=== PATIENT | male | born 1985 | race Caucasian/White ===

== ENCOUNTER 2025-01-26 18:44 | Emergency (ER) | payer OTHER, SELFPAY ==
--- OUTSIDE RECORDS SUMMARY | 2024-12-15 10:00 | XMS_ITS | Encounter Summary ---
Author Organization [facility] Address [address] [place] [address] Care Team Providers Care Pad Tufter Name Role Phone Cassie Nation Primary Care Provider [phone] Rios Diaz PA-C Unavailable [phone] Reason for Visit * Reason Comments Consultation Encounter Details Date Type Department Care Team (Late st Contact Info) Description 12/15/2024 10:00 AM CDT Office Visit [facility] - [address] [place] [id number] Rios Diaz PA-C [address] [place] [address] [place] [id number] Migraine with aura and without status migrainosus, not intractable (Primary Dx); Cervicalgia Social History Tobacco Use Types Packs/Day Years Used Date Smoking Tobacco: Former Cigarettes Smokeless Tobacco: Former Tobacco Cessation:Counseling Given: No Comments:vipe Alcohol Use Standard Drinks/Week Comments Yes 0 (1 standard drink = 0.6 oz pur e alcohol) rarely Sex and Gender Information Value Date Recorded Sex Assigned at Not on file Legal Sex Male 9:17 AM CDT Gender Identity Not on file Sexual Orientation Not on file documented as of this encounter Last Filed Vital Signs Vital Sign Reading Time Taken Comments Blood Pressure - - Pulse - - Temperature - - Respiratory Rate 15 12/15/2024 10:55 AM CDT Oxygen Saturation - - Inhaled Oxygen Concentration - - Weight 64.4 kg (142 lb) 12/15/2024 10:55 AM CDT Height 165.1 cm (5' 5) 12/15/2024 10:55 AM CDT Body Mass Index 23.63 12/15/2024 10:55 AM CDT documented in this encounter Progress Notes * Rios Diaz PA-C - 12/15/2024 10:00 AM CDT 12/15/2024 Neurology Consult Note 10:13 AM ~~~~~~~~~~~~ Rios Diaz PA-C Neurology ~~~~~~~~~~~ REPORT OF CONSULTATION Patient Name: Scott Khan : 1985 Primary Care Physician: Cassie Nation PA Consulting Physician: Rios Diaz PA-C REASON FOR CONSULTATION I am asked to see this patient in consultation for evaluation of headaches and neck pain. He has a history of migraines in the past and was diagnosed with viral meningitis on 10/17/2024. HPI: Scott Khan is a 39-year-old pleasant male patient with a history of migraines and asthma, presents for follow-up after being diagnosed with viral meningitis approximately 2 months ago. He wasdiagnosed with viral meningitis on 10/17/2024. He reports ongoing headaches and neck pain since the meningitis. The headaches typically start at the base of the head and progress to a pressure sensation all over the head. He experiences these headaches a few times a week, with severity ranging from 2-4/10, occasionally reaching 6/10 when accompanied by nausea. Associated symptoms include: - Vision changes: difficulty focusing, haziness lasting minutes to hours - Brain fog and confusion - Dizziness during headache episodes - Ear pressure and popping sensation - Sleep disturbances: broken sleep, discomfort, and stiffness Scott also notes increased asthma symptoms, particularly at night, with chest tightness and shallowbreathing. 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 Current medications: - Tylenol (acetaminophen) as needed - Ibuprofen as needed - Cyclobenzaprine (Flexeril) for sleep - Inhaler for asthma - Pepcid (famotidine) for acid reflux He reports improvement since the acute phase of meningitis, but is not back to his baseline. He describes his recovery as two steps forward, one step back. He does admit to a history of migraines since his teenage years. His mother also has a history of migraines. He has never been placed on any medications for his migraines. PAST MEDICAL HISTORY Past Medical History: Diagnosis Date Headache Neck pain PAST SURGICAL HISTORY No past surgical history on file. ALLERGIES/SENSITIVITIES No Known Allergies CURRENT MEDS Current Outpatient Medications: acetaminophen (TYLENOL) 325 mg oral tablet, Take 3 tablets (975 mg) by mouth., Disp: , Rfl: albuterol HFA (PROVENTIL;VENTOLIN HFA) 90 mcg/actuation Inhl inhaler, INHALE 1 TO 2 PUFFS BY MOUTH EVERY 4 HOURS WHILE AWAKE, Disp: , Rfl: ammonium lactate 12% (LAC-HYDRIN) 12 % Top cream cream, Apply daily to affected area(s) as needed.,Disp: , Rfl: cyclobenzaprine (FLEXERIL) 10 mg oral tablet, , Disp: , Rfl: famotidine (PEPCID) 20 mg oral tablet, Take 1 tablet (20 mg) by mouth., Disp: , Rfl: gabapentin (NEURONTIN) 300 mg oral capsule, Take 1 cap qhs for 7 days, then take 2 caps qhs., Disp:60 capsule, Rfl: 3 ibuprofen (ADVIL) 800 mg oral tablet, Take 1 tablet (800 mg) by mouth., Disp: , Rfl: SUMAtriptan succinate (IMITREX) 100 mg oral tablet, Take 1 tablet (100 mg) by mouth as needed. May repeat after two hours. Maximum dose 200 mg/24 hours., Disp: 12 tablet, Rfl: 3 SOCIAL HISTORY Social History Socioeconomic History Marital status: Unknown Spouse name: Not on file Number of children: Not on file Years of education: Not on file Highest education level: Not on file Occupational History Not on file Tobacco Use Smoking status: Former Types: Cigarettes Smokeless tobacco: Former Tobacco comments: vipe Substance and Sexual Activity Alcohol use: Yes Comment: rarely Drug use: Never Sexual activity: Not on file Other Topics Concern Not on file Social History Narrative Not on file Social Drivers of Health Financial Resource Strain: Low Risk (10/18/2024) Received from [facility] Financial Resource Strain Within the past 12 months, have you or your family members you live with been unable to get utilities (heat, electricity) when it was really needed?: No Food Insecurity: Low Risk (10/18/2024) Received from [facility] Food Insecurity Within the past 12 months, did you worry that your food would run out before you got money to buy more?: No Within the past 12 months, did the food you bought just not last and you didn???t have money to getmore?: No Transportation Needs: Low Risk (10/18/2024) Received from [facility] Transportation Needs Within the past 12 months, has lack of transportation kept you from medical appointments, getting your medicines, non-medical meetings or appointments, work, or from getting things that you need?: No Physical Activity: Not on file Stress: Not on file Social Connections: Socially Integrated (10/16/2024) Received from [facility] Social Connections Do you often feel lonely or isolated from those around you?: 0 Intimate Partner Violence: Low Risk (10/18/2024) Received from [facility] Interpersonal Safety Do you feel physically and emotionally safe where you currently live?: Yes Within the past 12 months, have you been hit, slapped, kicked or otherwise physically hurt by someone?: No Within the past 12 months, have you been humiliated or emotionally abused in other ways by your partner or ex-partner?: No Housing Stability: Low Risk (10/18/2024) Received from [facility] Housing Stability Do you have housing? (Housing is defined as stable permanent housing and does not include staying outside in a car, in a tent, in an abandoned building, in an overnight halfway, or couch-surfing.): Yes Are you worried about losing your housing?: No FAMILY HISTORY Family History Problem Relation Name Age of Onset Migraines Mother Heart Disease Father REVIEW OF SYSTEMS: 10 point ROS was otherwise negative. Resp. rate 15, height 5' 5 (1.651 m), weight 64.4 kg (142 lb). EXAM: Patient was well groomed and appeared of appropriate age. HEENT: Pupils were equal and reactive to light and accommodation. Extraocular movements were intact. No mucosal congestion. Neck: The neck was supple. There were mild myofascial tender points and tightness in the paracervical, trapezius, and levator scapula areas. No carotid bruits. Chest: Air entry was present bilaterally. Chest was clear to auscultation. Heart: S1-S2, regular rate and rhythm. No murmurs. Neurological examination: Higher mental functions: The patient was awake alert and oriented x3. Speech and language functionswere normal. Cranial nerves examination: Pupils were equal and reactive to light and accommodation. Extraocular movements were intact. The optic disc was normal. There was no papilledema. There was no disconjugate gaze. There were no facial sensory deficits. There was no facial asymmetry. The shoulder shrug wasnormal. The tongue and uvula were in the midline. CN II- XII normal. Motor examination: The tone was normal. There is no pronator drift. The strength in the proximal and distal muscle groups in both upper and lower extremities was normal at 5/5. Reflexes were 2/5 bilaterally symmetrical in both upper and lower extremities. The toes were downgoing. Sensory examination: The light touch, pinprick, joint position, vibration and temperature sensations were normal. Coordination: Finger to nose and heel to rollins testing were normal. There was no dysmetria. No dysdiadochokinesia. Gait: The patient walked with a narrow-based gait. There was no gait ataxia. Romberg's test was negative. Tandem, heel and toe walking were normal. Imaging: CT head (reviewed) - 10/17/24 IMPRESSION: 1. No acute intracranial process. Assessment and Plan: Scott Khan is a 39-year-old pleasant male presenting today with a history of migraines in the past and a recent diagnosis of viral meningitis a couple months ago. He is continuing and noticed lingering symptoms with intermittent flareups of headaches and brain fog. Assessment: 1. Post-viral meningitis syndrome: Patient experiencing persistent headaches, neck pain, and neurological symptoms following viral meningitis diagnosis 2 months ago. 2. Possible posttraumatic migraine: History of migraines with current symptoms suggesting a transformation to a more chronic form following the viral meningitis. He may be dealing with classical migraines as he has been noticing some hazy vision issues that can last minutes to hours. 3. Asthma exacerbation: Reported increase in asthma symptoms, particularly nocturnal chest tightness and shallow breathing. Plan: 1. 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 Asthma management: - Continue current inhaler use - Monitor symptoms and use of rescue inhaler - Consider pulmonary function testing if symptoms persist or worsen 3. General recommendations: - Maintain regular sleep schedule - Ensure regular meals - Gradually reintroduce exercise routine as symptoms allow - Stay well-hydrated - Avoid alcohol and recreational drugs 4. Follow-up: - Schedule appointment in 4-6 weeks - Instruct patient to message via [employer] for any side effects or concerns before the follow-up appointment I thank Cassie Nation PA for the opportunity to participate in the patient's care. I spent 60 min. With the patient in activities before, during and after the visit. [facility] 2024: Documentation of current mediations reviewed every visit 2. Does patient use tobacco? No 3. Patient has had no falls in calendar year 4. Does patient have Dementia? No Rios Diaz PA-C Neurology documented in this encounter Plan of Treatment Not on file documented as of this encounter Visit Diagnoses Diagnosis Migraine with aura and without status migrainosus, not intractable- Primary Migraine with aura, without mention of intractable migraine without mention of status migrainosus Cervicalgia documented in this encounter Care Teams Pad Tufter Relationship Specialty [place] [address] [place] [address] PCP - General Family Medicine 11/02/24 Rios Diaz PA-C [address] [facility] [address] [place] [address] Neurology 11/03/24 documented as of this encounter
--- OUTSIDE RECORDS SUMMARY | 2025-01-26 18:47 | XMS_ITS | Clinical Summary ---
Author Organization [facility] Address [address] [facility] [place] [address] Care Team Providers Care [employer] Travel Counselor Name Role Phone No Ref-Primary, Physician Primary Care Provider Allergies No known active allergies Medications albuterol (PROAIR HFA/PROVENTIL HFA/VENTOLIN HFA) 108 (90 BASE) MCG/ACT Inhaler Inhale 1-2 puffs into the lungs every 4 hours as needed. Active ammonium lactate (AMLACTIN) 12 % external cream Apply topically daily as needed. 4 Active fluticasone (FLOVENT DISKUS) 100 MCG/ACT inhaler Inhale 1 puff into the lungs 2 times daily. 3 Active oxyCODONE (ROXICODONE) 5 MG tabletIndicatio ns:Viral meningitis Take 1 tablet (5 mg) by mouth every 4 hours as needed for severe pain. 15 tablet 5 Active acetaminophen (TYLENOL) 325 MG tabletIndicatio ns:Viral meningitis Take 3 tablets (975 mg) by mouth 3 times daily. X 4 days then as needed pain/fever thereafter. 5 Active ibuprofen (ADVIL/MOTRIN) 800 MG tabletIndicatio ns:Viral meningitis Take 1 tablet (800 mg) by mouth 3 times daily as needed for inflammatory pain. (Take with food/don't take on empty stomach) 20 tablet 5 Active ondansetron (ZOFRAN ODT) 4 MG ODT tabIndications: Viral meningitis Take 1 tablet (4 mg) by mouth every 6 hours as needed for nausea or vomiting. 20 tablet 5 Active famotidine (PEPCID) 20 MG tabletIndicatio ns:Viral meningitis Take 1 tablet (20 mg) by mouth 2 times daily as needed (GI upset). Active Active Problems Problem Noted Date Diagnosed Date Viral meningitis 10/20/2024 Viral syndrome 10/17/2024 Tonsillitis 10/17/2024 Intractable headache, unspec ified chronicity pattern, unspecified headache type 10/17/2024 Community acquired pneumonia of right upper lobe of lung 10/17/2024 Family History Medical History Relation Comments Depression Father Depression Mother Relation Status Comments Father Mother Social History Tobacco Use Types Packs/Day Years Used Date Smoking Tobacco: Former Cigarettes Q uit: 05/11/2010 Smokeless Tobacco: Never Tobacco Cessation:Counseling Given: Yes Alcohol Use Standard Drinks/Week Comments No 0 (1 standard drink = 0.6 oz pur e alcohol) seldom PHQ-2 Answer Date Recorded PHQ-2 Score 0 04/20/2018 Adolescent Education Answer Date Record ed Getting School Help Needed Not on file 01/01 Food Insecurity Answer Date Recorded Within the past 12 months, d id you worry that your food would run out before you got money to buy more? No 10/18/2024 Within the past 12 months, d id the food you bought just not last and you didn t have money to get more? No 10/18/2024 Housing Stability Answer Date Recorded Do you have housing? (Housin g is defined as stable permanent housing and does not include staying outside in a car, in a tent, in an abandoned building, in an overnight group home, or couch-surfing.) Yes 10/18/2024 Are you worried about losing your housing? No 10/18/2024 Financial Resource Strain Answer Date R ecorded Within the past 12 months, h ave you or your family members you live with been unable to get utilities (heat, electricity) when it was really needed? No 10/18/2024 Transportation Needs Answer Date Record ed Within the past 12 months, h as lack of transportation kept you from medical appointments, getting your medicines, non-medical meetings or appointments, work, or from getting things that you need? No 10/18/2024 Interpersonal Safety Answer Date Record ed Do you feel physically and e motionally safe where you currently live? Yes 10/18/2024 Within the past 12 months, h ave you been hit, slapped, kicked or otherwise physically hurt by someone? No 10/18/2024 Within the past 12 months, h ave you been humiliated or emotionally abused in other ways by your partner or ex-partner? 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 Gender Identity Not on file Sexual Orientation Not on file Last Filed Vital Signs Vital Sign Reading Time Taken Comments Blood Pressure 119/74 10/23/2024 12:38 PM CDT Pulse 72 10/23/2024 12:38 PM CDT Temperature 36.4 C (97.6 F) 10/23/2024 12:38 PM CDT Respiratory Rate 19 10/23/2024 12:38 PM CDT Oxygen Saturation 97% 10/23/2024 12:38 PM CDT Inhaled Oxygen Concentration - - Weight 65.1 kg (143 lb 9.6 oz) 10/18/2024 1:16 A M CDT Height 165.1 cm (5' 5) 10/18/2024 1:16 AM CDT Body Mass Index 23.9 10/18/2024 1:16 AM CDT Plan of Treatment Health Maintenance Due Date Last Done Comments ADVANCE CARE PLANNING 1985 ANNUAL REVIEW OF HM ORDERS 1985 HEPATITIS B VACCINE (2 of 3 - 19+ 3-dose series) 11/07/2019 10/10/2019 PHQ-2 (once per calendar year) 2024 06/07/2018, 12/21/2016 YEARLY PREVENTIVE VISIT 07/01/2024 07/02/2023, 06/29 COVID-19 VACCINE ( - 2024- season) 2024 02/21/2021, 01/06/2021 INFLUENZA VACCINE (#1) 2024 03/19/2021, 2004 DIABETES SCREENING 10/23/2027 10/22/2024, 0 10/21/2024, 10/17/2024, Additional history exists DTAP/TDAP/TD VACCINE (3 - Td or Tdap) 06/29/2032 06/29/2022, 04/21/2011 ZOSTER VACCINE (1 of 2) 2036 HEPATITIS C SCREENING Completed 06/29/2022 PNEUMOCOCCAL VACCINE: PEDIATRICS (0 to 5 YEARS) AND AT-RISK PATIENTS (6 to 49 YEARS) Aged Out 06/29/2022 No longer eligible based on patient's age to complete this topic HIV SCREENING Completed 10/17/2024, 06/29/2022 HPV VACCINE (No Doses Required) Completed MENINGITIS VACCINE Aged Out No longer eligible based on patient's age to complete this topic Procedures Procedure Name Priority Date/Time Associated Diagnosis Comments BASIC METABOLIC PANEL Add-On 10/22/2024 6:35 AM CDT HIV ANTIGEN ANTIBODY COMBO Add-On 10/17/2024 2:07 PM CDT from Last 3 Months or Most Recently Relevant to Health Maintenance Results * Basic metabolic panel (10/22/2024 6:35 AM CDT) Sodium 137 135 - 145 mmol/L 10/22/2024 2:17 PM CDT [facility] Potassium 4.0 3.4 - 5.3 mmol/L 10/22/2024 2:17 PM CDT [facility] Chloride 100 98 - 107 mmol/L 10/22/2024 2:17 PM CDT [facility] Carbon Dioxide (CO2) 23 22 - 29 mmol/L 10/22/2024 2:17 PM CDT [facility] Anion Gap 14 7 - 15 mmol/L 10/22/2024 2:17 PM CDT [facility] Urea Nitrogen 10.5 6.0 - 20.0 mg/dL 10/22/2024 2:17 PM CDT [facility] Creatinine 0.91 0.67 - 1.17 mg/dL 10/22/2024 2:17 PM CDT [facility] GFR Estimate >90 >60 mL/min/1.7 3m2 10/22/2024 2:17 PM CDT [facility] Comment:eGFR calculated usin 2020 CKD-EPI equation. Calcium 9.3 8.8 - 10.4 mg/dL 10/22/2024 2:17 PM CDT [facility] Glucose 93 70 - 99 mg/dL 10/22/2024 2:17 PM CDT LABORATORY Blood STRUCTURE OF RIGHT UPPER LIMB / Unknown Venipuncture / Unknown 10/22/2024 6:35 AM CDT 10/22/2024 6:43 AM CDT us Chris Regan DO LAB - BLOOD ORDERABLES Final R esult LABORATORY [facility] [address] Lab (1st floor, no room number) [place] [address], [facility] * HIV Antigen Antibody Combo Cross (10/17/2024 2:07 PM CDT) [facility] HIV Antigen Antibody Combo Nonreactive Nonreactive 10/18/2024 3:04 AM CDT [facility] Comment:Negative HIV-1 p24 a ntigen and HIV-1/2 antibody screening test results usually indicate the absence of HIV-1 and HIV-2 infection. However, such negative results do not rule-out acute HIV infection. If acute HIV-1 or HIV-2 infection is suspected, detection of HIV-1 or HIV-2 RNA is recommended. This result is obtained using the [employer] HIV Duo method on the tiffany e801 immunoassay analyzer. Blood BLOOD SPECIMEN / Unknown Venipuncture / Unknown 10/17/2024 2:07 PM CDT 10/17/2024 2:29 PM CDT us Shira Salgado MD LAB - BLOOD ORDERABLES Final Res ult [facility] [facility] [facility] [place] [facility] [address] [facility], [address] [place] [address], [facility] from Last 3 Months or Most Recently Relevant to Health Maintenance Insurance [facility] [employer] Advance Directives For more information, please contact: [phone] * Full Code (Latest Code Status on File) Date Activated Date Inactivated Comments 10/18/2024 12:30 AM 10/23/2024 6:58 PM All basic an d advanced life-sustaining interventions are performed as appropriate Question Answer Comments Code status determined by: Discussion with patie nt/ legal decision maker Care Teams [employer] Travel Counselor Relationship Specialty Start Date End Date No Ref-Primary, Physician PCP - General 09/15/18
--- OUTSIDE RECORDS SUMMARY | 2025-01-26 18:47 | XMS_ITS | Clinical Summary ---
Author Organization [facility] Address [facility] [place] [address] Care Team Providers Care Spray Foam Installer Name Role Phone Peng Champagne MD Primary Care Provider Allergies No known active allergies Medications fluticasone propionate (Flovent Diskus) 100 mcg/actuation inhalerIndications: Mild persistent asthma without complication (HC) Inhale 1 Puff by mouth two times daily. 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 140 g 4 08/18/2023 4:10 PM CDT 4 Active ondansetron (ZOFRAN ODT) 4 mg disintegrating tabletIndications:H eadache syndrome,Nausea Place 1 Tablet (4 mg) on the tongue every 6 hours if needed for Nausea/Vomit ing. 30 Tablet 5 Active omeprazole (PRILOSEC) 20 mg Delayed-Release capsuleIndications: Nausea,Abdominal pain, epigastric Take 1 Capsule (20 mg) by mouth once daily before a meal. Take 30 minutes prior to a meal 30 Capsule 5 Active cyclobenzaprine (FLEXERIL) 10 mg tabletIndications:V iral meningitis (HC) Take 1 Tablet (10 mg) by mouth 3 times daily if needed for Muscle Spasm. 30 Tablet 5 Active albuterol HFA (PRO-AIR; VENTOLIN; PROVENTIL) 90 mcg/actuation inhalerIndications: Mild persistent asthma without complication (HC) Inhale 1-2 Puffs by mouth every 4 hours while awake. 8.5 g 3 5 Active Active Problems Problem Noted Date Diagnosed Date Enterovirus infection 11/10/2024 Viral meningitis 10/20/2024 Regular astigmatism, bilateral 08/06/2022 Resolved Problems Problem Noted Date Diagnosed Date Resolved Date Asthma 12/24/2015 10/31/2024 Laceration of hand 12/12/2010 Encounters Date Type Department Care Team Description 11/21/2024 8:45 AM CDT Office Visit [address] [address] Cassie Nation [facility] F/U (Patient needs ok to go back to work, on 10/17/24 patient was diagnosed with Viral meningitis, still some lower back pain and shedding fingernails ) 11/20/2024 Travel 11/14/2024 Travel 11/14/2024 Online Questionnaire [facility] E-Visits [address] [place] [address] Carter Villanueva Jr., AIRPLANE FIRST OFFICER, DNP 11/09/2024 3:00 PM CDT Office Visit [address] [address] Jere Sanford PA Follow Up (Meningitis, feeling about same today) 11/09/2024 Travel 11/04/2024 Travel 10/31/2024 2:10 PM CDT Office Visit [address] [address] Cassie Nation PA Follow Up (Patient presents for ER follow up) 10/30/2024 Travel from Last 3 Months Immunizations Immunization Administration Dates Next Due COVID-19 vaccine (Moderna 100mcg/0.5mL) PF, MDV 01/06/2021 Hepatitis B (Adult) 10/10/2019 Influenza, IIV3 (Age >=3 years) 02/04/2005 Influenza, IIV4 03/19/2021 Pneumococcal Conj 20-valent (Prevnar 20) 023 Tdap 06/29/2022,04/21/2011 Family History Medical History Relation Name Comments Heart attack Father Lung cancer Father Lymphoma Maternal Aunt Non-Hodgkins Esophageal cancer Maternal Grandfather Cancer-ovarian Mother Stomach cancer Mother Relation Name Status Comments Father Maternal Aunt Maternal Grandfather Mother Social History Tobacco Use Types Packs/Day Years Used Date Smoking Tobacco: Former Cigarettes Q uit: 2011 Passive Smoke Exposure: Past Smokeless Tobacco: Never Tobacco Cessation:Counseling Given: Yes Alcohol Use Standard Drinks/Week Comments Yes 0 (1 standard drink = 0.6 oz pure alcohol) Drinks alcohol very infrequently PHQ-2 Answer Date Recorded PHQ-2 TOTAL SCORE 0 11/21/2024 Social Connections Answer Date Recorded Do you often feel lonely or isolated from those around you? 0 10/16/2024 Financial Resource Strain Answer Date R ecorded Difficulty of Paying Living Expenses 3 09/01/2024 Difficulty of Paying Living Expenses Not on file 09/01/2024 Food Insecurity Answer Date Recorded Do you worry your food will run out before you are able to buy more? 1 10/16/2024 Transportation Needs Answer Date Record ed Does lack of transportation keep you from medica l appointments? 1 10/16/2024 Does lack of transportation keep you from work, meetings or getting things that you need? 1 10/16/2024 Housing Stability Answer Date Recorded What is your housing situation today? 1 10/16/2024 Interpersonal Safety Answer Date Record ed Are you being hit, kicked, p ushed or yelled at (see row info)? No 06/05/2024 Interpersonal Safety Abuse 12 - 18 Not on file 06/05/2024 Interpersonal Safety Ambulatory Vulnerability No t on file 06/05/2024 Utilities Answer Date Recorded Do you have trouble paying f or utilities (for example, heat, electricity, water, phone)? 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 Gender Identity Not on file Sexual Orientation Straight 08/06/2022 9: 56 AM CDT Obstetrics History Last Filed Vital Signs Vital Sign Reading Time Taken Comments Blood Pressure 112/72 11/21/2024 8:52 AM CDT Pulse 81 11/21/2024 8:52 AM CDT Temperature 36.7 C (98.1 F) 11/21/2024 8:52 AM CDT Respiratory Rate 16 10/16/2024 2:20 PM CDT Oxygen Saturation 97% 11/21/2024 8:52 AM CDT Inhaled Oxygen Concentration - - Weight 64.8 kg (142 lb 14.4 oz) 11/21/2024 8:52 AM CDT Height 165.1 cm (5' 5) 11/21/2024 8:52 AM CDT Body Mass Index 23.78 11/21/2024 8:52 AM CDT Plan of Treatment Health Maintenance Due Date Last Done Comments HPV series for age 9-45 (1 - 3-dose SCDM series) 2013 Hepatitis B series for 19+ (2 of 3 - 19+ 3-dose series) 11/07/2019 10/10/2019 COVID-19 vaccine series ( - 2024- season) 2024 02/21/2021, 01/06/2021 Influenza Vaccine (#1) 2024 03/19/2021, 2004 BMI (ht and wt on same day) for age 18+ 11/21/2025 11/21/2024, 10/31/2024, 11/15/2023, Additional history exists Depression screening for age 12+ 11/21/2025 11/21/2024, 07/02/2023, 06/29/2022, Additional history exists Lipids for age 35-44 07/01/2028 07/02/2023, 07/02/2023, 06/29/2022 Tetanus booster 06/29/2032 06/29/2022, 04/21/2011 RSV vaccine for adults or (1 - 1-dose 75+ series) 2061 HIV for age 15-65 Completed 06/29/2022 Hepatitis C screening for age 18-79 Completed 06/29/2022 Pneumococcal series for age 6-49 Aged Out 06/29/2022 No longer eligible based on patient's age to complete this topic Procedures Procedure Name Priority Date/Time Associated Diagnosis Comments CBC WITH AUTO DIFFERENTIAL Routine 11/09/2024 3:44 PM CDT Viral meningitis (HC) - 11/03 Abnormal CBC CBC WITH AUTO DIFFERENTIAL Routine 11/09/2024 3:44 PM CDT Viral meningitis (HC) - 11/03 Abnormal CBC LIPID PANEL W REFLEX MEASURED LDL Routine 07/02/2023 1:18 PM CDT Annual physical exam LC HIV-1/O/2, 4TH GENERATION Routine 06/29/2022 1:21 PM CDT Screening for HIV (human immunodeficiency virus) LC HCV ANTIBODY RFX TO QUANT PCR Routine 06/29/2022 1:21 PM CDT Need for hepatitis C screening test from Last 3 Months or Most Recently Relevant to Health Maintenance Results * (ABNORMAL) CBC WITH AUTO DIFFERENTIAL (11/09/2024 3:44 PM CDT) Pathologist [facility] WHITE BLOOD CELL COUNT 7.3 3.8 - 10.8 Thousand/ uL 11/10/2024 3:53 AM CDT [facility] RED BLOOD CELL COUNT 4.35 4.20 - 5.80 Million/u L 11/10/2024 3:53 AM CDT [facility] HEMOGLOBIN 14.5 13.2 - 17.1 g/dL 11/10/2024 3:53 AM CDT [facility] HEMATOCRIT 41.2 38.5 - 50.0 % 11/10/2024 3:53 AM CDT [facility] MCV 94.7 80.0 - 100.0 fL 11/10/2024 3:53 AM CDT [facility] MCH 33.3(H) 27.0 - 33.0 pg 11/10/2024 3:53 AM CDT [facility] MCHC 35.2 32.0 - 36.0 g/dL 11/10/2024 3:53 AM CDT [facility] Comment: For adults, a slight decrease in the calculated MCHC value (in the range of 30 to 32 g/dL) is most likely not clinically significant; however, it should be interpreted with caution in correlation with other red cell parameters and the patient's clinical condition. RDW 13.2 11.0 - 15.0 % 11/10/2024 3:53 AM CDT [facility] PLATELET COUNT 381 140 - 400 Thousand/ uL 11/10/2024 3:53 AM CDT [facility] MPV 10.7 7.5 - 12.5 fL 11/10/2024 3:53 AM CDT [facility] NEUTROPHILS 58.3 % 11/10/2024 3:53 AM CDT [facility] LYMPHOCYTES 31.7 % 11/10/2024 3:53 AM CDT [facility] MONOCYTES 7.9 % 11/10/2024 3:53 AM CDT [facility] EOSINOPHILS 1.4 % 11/10/2024 3:53 AM CDT [facility] BASOPHILS 0.7 % 11/10/2024 3:53 AM CDT [facility] ABSOLUTE NEUTROPHILS 4256 1500 - 7800 cells/uL 11/10/2024 3:53 AM CDT [facility] ABSOLUTE LYMPHOCYTES 2314 850 - 3900 cells/uL 11/10/2024 3:53 AM CDT [facility] ABSOLUTE MONOCYTES 577 200 - 950 cells/uL 11/10/2024 3:53 AM CDT [facility] ABSOLUTE EOSINOPHILS 102 15 - 500 cells/uL 11/10/2024 3:53 AM CDT [facility] ABSOLUTE BASOPHILS 51 0 - 200 cells/uL 11/10/2024 3:53 AM CDT [facility] Blood BLOOD SPECIMEN / Unknown [facility] / Unknown 11/09/2024 3:44 PM CDT 11/09/2024 3:44 PM CDT us Jere MARIANO HEMATOLOGY Final Resul t [facility] [place] [address], * (ABNORMAL) LIPID PANEL W REFLEX MEASURED LDL (07/02/2023 1:18 PM CDT) CHOLESTEROL,TOTAL 212(H) 100 - 199 mg/dL 07/02/2023 10:26 PM CDT [facility] Comment: Cholesterol, Total Reference Ranges Desirable <200 mg/dL Borderline 200-239 mg/dL High >=240 mg/dL TRIGLYCERIDES 426(H) <150 mg/dL 07/02/2023 10:26 PM CDT [facility] HDL CHOLESTEROL 40(L) >40 mg/dL 10:26 PM CDT [facility] NON-HDL CHOLESTEROL 172(H) <145 mg/dl 07/02/2023 10:26 PM CDT [facility] CHOL/HDL RATIO 5.30(H) <4.50 07/02/2023 10:26 PM CDT [facility] LDL CHOLESTEROL 10:26 PM CDT [facility] Comment:Invalid LDL when Tri g >400. VLDL CHOLESTEROL COMMENT 07/02/2023 10:26 PM CDT [facility] Comment:Unable to calculate VLDL. PROVIDER ORDERED STATUS RANDOM 07/02/2023 10:26 PM CDT [facility] Blood BLOOD SPECIMEN / Unknown Venipuncture / Unknown 07/02/2023 1:18 PM CDT 07/02/2023 1:19 PM CDT us Peng Champagne MD CHEMISTRY Final R esult [facility] [address] [place] [address], * LC HCV ANTIBODY RFX TO QUANT PCR (06/29/2022 1:21 PM CDT) [facility] HCV Ab Non Reactive Non Reactive 07/02/2022 3:10 PM CDT [facility] Blood BLOOD SPECIMEN / Unknown Venipuncture / Unknown 06/29/2022 1:21 PM CDT 06/29/2022 1:22 PM CDT Narrative [facility] - 07/02/2022 3:10 PM CDT Performed at: [address] [place] [id number] Ink Jet Operator: Bobo Salvador MD, Phone: [phone] us Yanelis Parson DO LABORATORY Final Result [facility] [address] [place] [address], * LC HIV-1/O/2, 4TH GENERATION (06/29/2022 1:21 PM CDT) HIV Scr 4th Gen Non Reactive Non Reactive 07/01/2022 10:07 PM CDT [facility] ([facility]) Comment: HIV Negative HIV-1/HIV-2 antibodies and HIV-1 p24 antigen were NOT detected. There is no laboratory evidence of HIV infection. Blood BLOOD SPECIMEN / Unknown Venipuncture / Unknown 06/29/2022 1:21 PM CDT 06/29/2022 1:22 PM CDT Narrative [facility] - 07/01/2022 10:07 PM CDT Performed at: [address] [place] [id number] Ink Jet Operator: Bobo Salvador MD, Phone: [phone] us Yanelis Parson DO LABORATORY Final Result [facility] [address] [place] [address] from Last 3 Months or Most Recently Relevant to Health Maintenance Insurance [facility] Care Teams Spray Foam Installer Relationship Specialty [place] [address] [facility] [place] [address] PCP - General Family Practice 07/02/23
--- OUTSIDE RECORDS SUMMARY | 2025-01-26 18:47 | XMS_ITS | Clinical Summary ---
Author Organization [facility] Address [address] [place] [address] Care Team Providers Care Mercury Purifier Name Role Phone Cassie Nation Primary Care Provider [phone] Rios Diaz PA-C Unavailable [phone] Allergies No known active allergies Medications acetaminophen (TYLENOL) 325 mg oral tablet Take 3 tablets (975 mg) by mouth. 5 Active albuterol HFA (PROVENTIL;ENRIQUE TAVARES HFA) 90 mcg/actuation Inhl inhaler INHALE 1 TO 2 PUFFS BY MOUTH EVERY 4 HOURS WHILE AWAKE Active ammonium lactate 12% (LAC-HYDRIN) 12 % Top cream cream Apply daily to affected area(s) as needed. 4 Active cyclobenzaprine (FLEXERIL) 10 mg oral tablet 5 Active famotidine (PEPCID) 20 mg oral tablet Take 1 tablet (20 mg) by mouth. 5 Active ibuprofen (ADVIL) 800 mg oral tablet Take 1 tablet (800 mg) by mouth. 5 Active gabapentin (NEURONTIN) 300 mg oral capsuleIndicatio ns:Migraine with aura and without status migrainosus, not intractable,Cerv icalgia Take 1 cap qhs for 7 days, then take 2 caps qhs. 60 capsule 3 5 Active SUMAtriptan succinate (IMITREX) 100 mg oral tabletIndication s:Migraine with aura and without status migrainosus, not intractable Take 1 tablet (100 mg) by mouth as needed. May repeat after two hours. Maximum dose 200 mg/24 hours. 12 tablet 3 Active Active Problems Problem Noted Date Diagnosed Date Viral meningitis 10/20/2024 Community acquired pneumonia of right upper lobe of lung 10/17/2024 Encounters Date Type Department Care Team Description 12/15/2024 10:00 AM CDT Office Visit [facility] - [address] [place] [address] Rios Diaz PA-C Migraine with aura and without status migrainosus, not intractable (Primary Dx); Cervicalgia from Last 3 Months Immunizations Immunization Administration Dates Next Due Hep B Adult 10/10/2019 Influenza split virus (Fluzone Quadrivalent PF) 03/19/2021 Influenza split virus trivalent 02/04/2005 Pneumococcal PCV20 06/29/2022 SPIKEVAX (Moderna) 12+ Yrs M onovalent COVID Vaccine (bad credit collector) 01/06/2021 Tdap 06/29/2022,04/21/2011 Family History Medical History Relation Comments Heart Disease Father Migraines Mother Relation Status Comments Father Mother Social [...] Mass Index 23.63 12/15/2024 10:55 AM CDT Plan of Treatment Health Maintenance Due Date Last Done Comments Hepatitis C Screening 1986 Lipid Screening 1986 Anxiety Screening (PENELOPE-2) 11/12/1987 Depression Assessment (PHQ-2) 11/12/1987 HPV Vaccine (1 - 3-dose SCDM series) 2013 COVID-19 Vaccine (2 - 2024-2 6 season) 2024 01/06/2021 Influenza Vaccine (#1) 2024 , 02/04/2005 Adult Tetanus Booster 06/29/2032 06/29/2022 , 04/21/2011 RSV Vaccines (1 - 1-dose 75+ series) 2061 Pneumococcal Vaccine Aged Out 06/29/2022 No long er eligible based on patient's age to complete this topic Meningococcal B Vaccine Aged Out No l onger eligible based on patient's age to complete this topic Insurance [facility] Care Teams Mercury Purifier Relationship Specialty [place] [address] [place] [address] PCP - General Family Medicine 11/02/24 Rios Diaz PA-C [address] [facility] [address] [place] [address] Neurology 11/03/24
--- OUTSIDE RECORDS SUMMARY | 2025-01-26 18:47 | XMS_ITS | Encounter Summary ---
Author Organization [place] Address [address] [place] [address] Care Team Providers Care Senior Reactor Operator Name Role Phone [facility] Primary Care Provider + Kaylee Flores PA-C Unavailable Kaylee Flores PA-C Unavailable No Ref-Primary, Physician Primary Care Provider David Brumfield MD Unavailable Encounter Details Date Type Department Care Team (Late st Contact Info) Description 06/06/2018 [facility] Treatment Plan [facility] [place] [address], [address] [place] [address] Rachael Martínez Psy.D, LP Social History Tobacco Use Types Packs/Day Years Used Date Smoking Tobacco: Former Cigarettes Q uit: 05/11/2010 Smokeless Tobacco: Never Alcohol Use Standard Drinks/Week Comments No 0 (1 standard drink = 0.6 oz pur e alcohol) seldom PHQ-2 Answer Date Recorded PHQ-2 Score 0 04/20/2018 Sex and Gender Information Value Date Recorded Sex Assigned at Not on file Legal Sex Male 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 Gender Identity Not on file Sexual Orientation Not on file documented as of this encounter Plan of Treatment Not on file documented as of this encounter Visit Diagnoses Not on filedocumented in this encounter Additional Health Concerns Infection Onset Date Last Indicated Resolved Time COVID-19 03/10/2021 03/10/2021 03/31/2021 11:4 1 PM BUCKLE STRAP DRUM OPERATOR Rule Out COVID-19 10/17/2024 10/17/2024 10/17/2024 3:27 PM CDT documented as of this encounter Care Teams Senior Reactor Operator Relationship Specialty Start Date End Date [facility] PCP - General Family Practice 05/11/14 09/14/18 Kaylee Flores PA-C [address] [place] [address] PCP - Assigned PCP 11/26/16 06/14/18 No Ref-Primary, Physician PCP - General 09/15/18 Kaylee Flores PA-C [address] [place] [address] Assigned PCP 11/26/16 12/23/19 [place] [address] [place] [place] [address] Assigned Musculoskeletal Provider 02/02/20 04/27/20 documented as of this encounter
[2025-01-26 18:53] VITALS: BP 127/77; PULSE 128; RESP 18; TEMP 39.2; O2SAT 97; BMI 22.0
[2025-01-26 19:10] VITALS: RESP 16; TEMP 39.2
--- NOTE | 2025-01-26 19:20 | CRLHL7_ITS ---
For Patients: As a result of the Cures Act, medical imaging exams and procedure reports are released immediately into your electronic medical record. You may view this report before your referring provider. If you have questions, please contact your health care provider. INDICATION: Fever. TECHNIQUE: Chest 2 views. COMPARISON: None. FINDINGS: No pneumothorax or pleural effusion. Subtle asymmetric ill-defined left infrahilar opacity. Lungs are otherwise clear. Cardiac and mediastinal contours are within normal limits. Upper abdomen and osseous structures as imaged show no acute abnormality. IMPRESSION: Subtle left infrahilar opacity, concerning for pneumonia. Dictated by Ace Cottrell MD @ 01/26/2025 8:04:37 PM (Electronically Signed)
[2025-01-26 19:50] LABS: PCR FLU A Negative PCR FLU A (Negative); PCR FLU B Negative PCR FLU B (Negative); PCR RSV Negative PCR RSV (Negative); SARS PCR* Negative SARS-CoV-2 (Negative)
[2025-01-26 20:03] LABS: Lactate* 1.1 mmol/L (0.5-1.9)
[2025-01-26 20:05] LABS: Appearance Urine Clear (Clear)
[2025-01-26 20:06] LABS: Hematocrit* 41.0 % (37.0-53.0); Hemoglobin* 14.8 gm/dL (13.5-17.5); Immature Granulocytes Pct Auto 0.2 %; Mean Corpuscular HGB Conc 36 gm/dL (32-36); Mean Corpuscular Hemoglobin 33 pg (26-34); Mean Corpuscular Volume 92 fL (80-100); RDW Coefficient of Variation % 12.0 % (11.5-15.5); Red Blood Count* 4.48 m/uL (4.30-5.90); White Blood Count* 11.42 K/uL (4.50-11.00)
[2025-01-26 20:10] LABS: Immature Granulocytes Abs Auto 0.00 K/uL (0.00-0.30); Lymphocytes Absolute Auto 0.80 K/uL (0.90-2.90); Slide Review Reflex No
[2025-01-26 20:19] LABS: Chloride* 101 mmol/L (96-114)
[2025-01-26 20:20] LABS: Albumin* 4.2 g/dL (3.3-5.0); Potassium* 3.6 mmol/L (3.6-5.1); Sodium* 131 mmol/L (135-149)
[2025-01-26 20:23] LABS: Alanine Aminotransferase* 45 U/L (4-50); Alkaline Phosphatase* 97 U/L (40-150); Anion Gap 10 mEq/L (7-15); Aspartate Amino Transferase* 41 U/L (12-35); Bilirubin Total* 0.8 mg/dL (0.1-1.5); Blood Urea Nitrogen* 16 mg/dL (5-24); Calcium* 9.0 mg/dL (8.4-10.6); Carbon Dioxide* 20 mmol/L (20-32); Creatinine* 1.1 mg/dL (0.5-1.5); Est. Creatinine Clearance* 77.11; Estimated Glomerular Filt Rate 88 ml/min; Glucose* 108 mg/dL (60-115); Total Protein* 7.6 g/dL (6.0-8.3)
[2025-01-26 20:39] LABS: Procalcitonin* 0.39 ng/mL (<0.50)
[2025-01-26] MEDS: AZITHROMYCIN 500 MG in 0.9 % SODIUM CHLORIDE 250 ml 250 ML 255 MG IVPB (22:32)
[2025-01-26] MEDS: cefTRIAXone 1 GM in 0.9 % SODIUM CHLORIDE Mini-bag 100 ML IVPB (22:34)
[2025-01-26] MEDS: ACETAMINOPHEN 500 MG TABLET 1000 MG PO (22:35)
[2025-01-26] MEDS: ONDANSETRON 2 MG/ML inj 4 MG IVP (23:14)
--- NOTE | 2025-01-26 23:22 | ED_ITS ---
HPI - Fever General Chief Complaint: Fever Stated Complaint: High Fever, Headache,Cough Time Seen by Provider: 01/26/25 18:45 History of Present Illness HPI Narrative: Patient is a 39-year-old gentleman who comes in today with fever as well as general malaise and cough. He has been sick for the last 6 hours. Prior to that he has been feeling well. Does have a distant history of meningitis in his only home medication is gabapentin. He has had no stiff neck no headache no changes vision or hearing. Patient has otherwise been feeling fine and has been in his usual state of health. No skin breakdown no rashes. Related Data Home Medications ?Medication ?Instructions ?Recorded ?Confirmed albuterol sulfate 90 mcg/actuation 1 - 2 puff inhalati on 01/26/25 aerosol inhaler gabapentin 300 mg capsule mg PO 01/26/25 Allergies Allergy/AdvReac Type Severity Reaction Status Date / Time No Known Drug Allergies Allergy Verified 01/26/25 18:52 Review of Systems Status of ROS Reports: 10 or more systems reviewed and unremarkable except as noted in History and below PFSH [facility] Social History Smoking Status: Never smoker Do you use any of these nicotine containing products: None Second hand tobacco smoke exposure: No How often do you have a drink containing alcohol: monthly or less How many standard drinks containing alcohol do you have on a typical day: 1 or 2 How often do you have six or more drinks on one occasion: Never AUDIT-C Alcohol total score: 1 Non-prescribed substance use: denies use service: No Exam Narrative Exam Narrative: EXAM GENERAL: Patient appears comfortable and well. EYES: No scleral icterus. LYMPH: No supraclavicular or cervical lymphadenopathy. SKIN: Visible skin seen during exam normal or with benign process only. EXT: No dependent lower extremity pedal edema. HEART: Regular rate and rhythm with no murmurs, rubs, or gallops. LUNGS: Clear to auscultation bilaterally with no crackles or wheezes. ABD: Soft, non tender, non distended. PSYCH: Good eye contact, speech is not pressured. Const Vital Signs, click to edit/add: Vital Signs - 24 hr 01/26/25 18:53 01/26/25 19:10 Temperature 102.5 F H 102.5 F H Pulse Rate [Pulse Oximeter] 128 H Respiratory Rate 18 16 Blood Pressure [Right Upper Arm] 127/77 Pulse Oximetry 97 Oxygen Delivery Method Room Air Room Air Course Course ED Course: Patient seen and examined. I do find that he has a lingular pneumonia as well as leukocytosis. I did culture his blood. I discussed the case with hospitalist who felt the patient likely be able to go home after IV fluids and Tylenol as well as IV antibiotics. I did treat him with Rocephin plus Zithromax and did place him on a 5 day course of Levaquin. He will follow-up with his primary physician in the next few days and will return if symptoms worsen. Of note he is not hypoxic and has a solid blood pressure. Procalcitonin and lactate normal. Vital Signs Vital signs: Initial Vital Signs Temperature 102.5 F H 01/26/25 18:53 Temperature Source Temporal Artery Scan 01/26/25 18:53 Pulse Rate 128 H 01/26/25 18:53 Respiratory Rate 18 01/26/25 18:53 Blood Pressure 127/77 01/26/25 18:53 Blood Pressure Mean 93 01/26/25 18:53 Pulse Oximetry 97 01/26/25 18:53 Oxygen Delivery Method Room Air 01/26/25 18:53 Vital Signs Temperature 102.5 F H 01/26/25 18:53 Pulse Rate 128 H 01/26/25 18:53 Respiratory Rate 18 01/26/25 18:53 Blood Pressure 127/77 01/26/25 18:53 Pulse Oximetry 97 01/26/25 18:53 Oxygen Delivery Method Room Air 01/26/25 18:53 Temperature 102.5 F H 01/26/25 19:10 Pulse Rate 128 H 01/26/25 18:53 Respiratory Rate 16 01/26/25 19:10 Blood Pressure 127/77 01/26/25 18:53 Pulse Oximetry 97 01/26/25 18:53 Oxygen Delivery Method Room Air 01/26/25 19:10 Medications Administered Medications: Generic Name Dose Route Start Last Admin Trade Name Freq PRN Reason Stop Dose Admin Ceftriaxone Sodium 1 gm/ 100 mls @ 200 mls/hr 01/26/25 22:15 01/26/25 23:12 Sodium Chloride IVPB Infused Q24H KENA Infusion Ondansetron HCl 4 mg 01/26/25 22:49 01/26/25 23:14 Ondansetron 2 Mg/Ml Inj IVP 01/26/25 22:50 4 mg ONCE ONE Administration Discontinued Medications Generic Name Dose Route Start Last Admin Trade Name E[place] PRN Reason Stop Dose Admin Acetaminophen 1,000 mg 01/26/25 22:09 01/26/25 22:35 Acetaminophen 500 Mg Tablet PO 01/26/25 22:10 1,000 mg ONCE ONE Administration Sodium Chloride 1,000 mls @ 1,000 mls/hr 01/26/25 21:26 01/26/25 23:12 0.9 % Sodium Chloride 1000 Ml IV 01/26/25 22:25 Infused .Q1H KENA Infusion Azithromycin 500 mg/ Sodium 255 mls @ 255 mls/hr 01/26/25 22:09 01/26/25 22:32 Chloride IVPB 01/26/25 22:10 255 mls/hr ONCE ONE Administration MDM - Fever Lab Data Labs: Lab Results 01/26/25 01/26/25 01/26/25 Range/Units 19:00 19:50 19:55 WBC 11.42 H (4.50-11.00) K/uL RBC 4.48 (4.30-5.90) m/uL Hgb 14.8 (13.5-17.5) gm/dL Hct 41.0 (37.0-53.0) % MCV 92 (80-100) fL MCH 33 (26-34) pg MCHC 36 (32-36) gm/dL RDW Coeff of Lj 12.0 (11.5-15.5) % Plt Count 206 (140-440) K/uL Neut % (Auto) 81.6 H (42.0-72.0) % Lymph % (Auto) 7.4 L (20-44) % [place] % (Auto) 10.6 (0.0-11.0) % Eos % (Auto) 0.0 (0.0-7.0) % Baso % (Auto) 0.2 (0.0-3.0) % Neut # (Auto) 9.30 H (1.7-7.0) K/uL Lymph # (Auto) 0.80 L (0.90-2.90) K/uL [place] # (Auto) 1.20 H (0.00-0.90) K/UL Eos # (Auto) 0.00 (0.00-0.50) K/uL Baso # (Auto) 0.00 (0.00-0.30) K/uL Abs Immat Gran (auto) 0.00 (0.00-0.30) K/uL Imm/Tot Granulo (auto) 0.2 % Sodium 131 L (135-149) mmol/L Potassium 3.6 (3.6-5.1) mmol/L Chloride 101 (96-114) mmol/L Carbon Dioxide 20 (20-32) mmol/L Anion Gap 10 (7-15) mEq/L BUN 16 (5-24) mg/dL Creatinine 1.1 (0.5-1.5) mg/dL Estimated Creat Clear 77.11 Estimated GFR 88 ml/min Glucose 108 (60-115) mg/dL Lactate 1.1 (0.5-1.9) mmol/L Calcium 9.0 (8.4-10.6) mg/dL Total Bilirubin 0.8 (0.1-1.5) mg/dL AST 41 H (12-35) U/L ALT 45 (4-50) U/L Alkaline Phosphatase 97 (40-150) U/L Total Protein 7.6 (6.0-8.3) g/dL Albumin 4.2 (3.3-5.0) g/dL Procalcitonin 0.39 (<0.50) ng/mL Urine Color Yellow (Yellow) Urine Appearance Clear (Clear) Urine pH 6.0 (5.0-8.5) Ur Specific [place] 1.025 (1.000-1.030) Urine Protein 1+ A (Negative) Urine Glucose (UA) Negative (Negative) Urine Ketones 2+ A (Negative) Urine Blood Trace-lysed A (Negative) Urine Nitrite Negative (Negative) Urine Bilirubin Negative (Negative) Urine Urobilinogen 0.2 (0.2-1.0) Ur Leukocyte Esterase Negative (Negative) Urine RBC 0-2 (0-2) Urine WBC 0-2 (0-5) Ur Squamous Epith Cells None (None-Few) Urine Bacteria None (None) SARS-CoV-2 (PCR) Negative SARS-CoV-2 (Negative) Influenza Type A (PCR) Negative PCR FLU A (Negative) Influenza Type B (PCR) Negative PCR FLU B (Negative) RSV (PCR) Negative PCR RSV (Negative) Discharge Plan Discharge Clinical Impression: Pneumonia Patient Disposition: Home, Self-Care Condition: Stable Instructions: Pneumonia (ED) Additional Instructions: Levaquin as directed Tylenol a 1000 mg 3 times a day as needed for fever Motrin 600 mg 3 times a day as needed for fever Activity Level: No Restrictions Discharge Diet: Regular Prescriptions: No Action gabapentin 300 mg capsule PO albuterol sulfate 90 mcg/actuation HFA aerosol inhaler 1 - 2 puff INHALATION Follow Up/Referrals: Provider,Not a Local [Primary Care Provider, Family Practice] Stand Alone Forms: MyHealth Info Instructions
[2025-01-27 00:04] VITALS: BP 113/64; PULSE 106; RESP 20; TEMP 37.4
== END 2025-01-27 00:07 | disposition home or self-care (01) ==
PROVIDERS: Emergency Provider Internal Medicine
DX: J18.9 Pneumonia, unspecified organism (principal)
CPT/HCPCS: 36415; 71046; 80053; 81001; 81003; 83605; 84145; 85025; 87040; 87631; 96365; 96366; 96375; 99283; 99284; A9270; J0456; J0696; J2405; J7030; J7050